=== PATIENT | female | born 1980 | race African-American/Black ===

== ENCOUNTER 2016-06-09 23:24 | Emergency (ER) | payer OTHER ==
--- NOTE | ~2016-06-09 | CR72 ---
[facility]. [facility] A Service of [facility] & [facility] RADIOLOGY TEXT RESULTS PATIENT: ALBERTINA YANG LOCATION: SED : 80 UNIT #: [id number] AGE: [address]: Evin Bermeo MD SEX: F ORDER DR: [id number] [place] [id number] E MR#: [id number] Acc #: [id number] NAME: ALBERTINA YANG : 1980 SEX: F STUDY DATE/TIME: 06/09/2016 23:19 UNIT: SED ROOM: STUDY DESCRIPTION: CR Chest Single View Portable Attending Physician: Evin Bermeo M.D. Ordering Physician: Evin Bermeo M.D. Primary Care Physician: Catie Bradley M.D. MEDICAL IMAGING REPORT This report is preliminary unless electronic signature is present. EXAM AP portable chest 06/09/2016 HISTORY 35-year-old female in the ED complaining of 2-week history of shortness of air, wheezing and chest pain. TECHNIQUE AP portable upright chest x-ray. FINDINGS The examination shows no active disease in the chest. Lungs are somewhat poorly imaged secondary to patient body habitus, but no pulmonary infiltrate or pleural effusion is visible, there has been no change since 10/02/2013. Heart size within normal limits. IMPRESSION No active disease. Dictated by... Kory Carlos M.D. THIS IS AN ELECTRONICALLY VERIFIED REPORT Kory Carlos M.D. at 06/14/2016 5:00 PM JAGDISH/santi TD: 06/10/2016 07:21 JOB #: [id number] MEDICAL IMAGING REPORT Page 1 of 1
[~2016-06-09 23:24] MED LIST: ALDACTONE PO; ALPRAZOLAM ER1 MG PO; AMLODIPINE BESY10 MG PO; APAP BUTALBITAL PO; AURALGAN EAR DR14 ML OT; BACTRIM TOP; CERTAGEN PO; COREG PO; DIFLUCAN PO; FAMOTIDINE PO; HCTZ PO; HYDROCODON-ACE1 EAC9 PO; IBUPROFEN PO; LISINOPRIL PO; METHOCARBAMOL500 MG PO; NO MEDICATIONS; OMNICEF300 MG PO; PREDNISONE PO; PREDNISONE50 MG PO; PRILOSEC PO; RONDEC-DM ORAL30 ML PO; SINGULAIR PO; ZYRTEC PO; ZYRTEC10 M2 PO
== END 2016-06-10 00:19 | disposition home or self-care (01) ==
LOC: SED 23:24
DX: J06.9 Acute upper respiratory infection, unspecified (principal); K21.9 Gastro-esophageal reflux disease without esophagitis; I10 Essential (primary) hypertension; Z90.710 Acquired absence of both cervix and uterus; Z90.49 Acquired absence of other specified parts of digestive tract; Z79.899 Other long term (current) drug therapy; Z88.8 Allergy status to other drugs, medicaments and biological substances
CPT/HCPCS: 71010; 94640; 99283; J1100